=== PATIENT | male | born 2005 | race Caucasian/White ===

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

== ENCOUNTER 2023-07-18 15:58 | Emergency (ER) | payer BC, SELFPAY ==
[2023-07-18 16:23] VITALS: BP 166/65; PULSE 81; RESP 12; TEMP 36.8; O2SAT 99
--- NOTE | 2023-07-18 16:51 | W.ED.GENAD ---
Discharge Plan Disposition Patient Disposition: Home Condition: Stable Discharge Details Chief Complaint: Sorethroat Clinical Impression: Sore throat Primary Care Provider: Unknown,Unknown ED Provider: Yanick Lara Home Meds and New Rx's Prescriptions: No Action No Known Home Meds Discharge Instructions Additional Instructions: Your strep test was negative You can try [id number] remedies such as 1000 mg of Tylenol and 600 mg of ibuprofen every 6 hours as needed. May also try taking a daily Claritin or Zyrtec Follow-up with your primary care provider if not better within 1 to 2 weeks If the strep culture grows anything you will be contacted If you feel more ill or have new symptoms such as inability to swallow liquids return to the emergency department HPI General Mode of arrival: ambulatory. Date/Time Provider Initiated Documentation: 07/18/23 16:21. Limitations to Documentation: no limitations. Information obtained by: patient. History of Present Illness 18 year old M presents to the emergency department with the chief complaint of Sore throat, described as mild, Patient started experiencing this day(s) (2) and it has been constant. No relieving factors improve symptom(s), No exacerbating factors reported . Patient notes no other symptoms.. Patient did receive the following treatments prior to arrival, none Related Data Home Medications Medication Instructions Recorded Confirmed Unknown [No Known Home Meds] 09/26/20 07/18/23 Allergies Allergy/AdvReac Type Severity Reaction Status Date / Time influenza virus vaccine, Allergy Intermediate PROBLEMS Verified 07/18/23 16:27 specific BREATHING General Stated Complaint: Sorethroat NEREIDA: 4 Review of Systems All systems reviewed & are unremarkable except as noted in HPI and below Constitutional Constitutional: Denies chills, Denies fever(s) and Denies weakness ENT Ears, Nose, Mouth, and Throat: Denies change in voice Cardiovascular Cardiovascular: Denies chest pain and Denies dyspnea Respiratory Respiratory: Denies cough and Denies dyspnea Gastrointestinal Gastrointestinal: Denies abdominal pain, Denies nausea and Denies vomiting Integumentary/Breasts Skin/Breast: Denies rash Neurologic Neurologic: Denies weakness Psychiatric Psychiatric: Denies depression Endocrine Endocrine: Denies cold intolerance and Denies heat intolerance Exam Const General: no acute distress Orientation: alert HENMT Head: normal to inspection Ears: external ears normal General nose exam: external nose normal Mouth: oral mucosae normal and moist mucous membranes Throat: posterior oropharynx normal and uvula midline Eyes General: appearance normal, both eyes and all related structures Neck Neck: normal visual inspection, full ROM, no lymphadenopathy, trachea midline and supple Resp Effort & Inspection: normal respiratory effort and able to speak in complete sentences Cardio Rate: regular rate Skin General skin exam: no rashes or lesions noted Neuro General: patient alert and patient oriented x3 Extrem General: normal to inspection Psych Mental Status: mental status grossly normal Course Vital Signs Vital signs: Vital Signs Temperature 36.8 C 07/18/23 16:23 Pulse 81 07/18/23 16:23 Respiratory Rate 12 07/18/23 16:23 Blood Pressure 166/65 H 07/18/23 16:23 Pulse Oximetry 99 07/18/23 16:23 Temperature 36.8 C 07/18/23 16:23 Temperature Source Temporal Artery Scan 07/18/23 16:23 Pulse 81 07/18/23 16:23 Respiratory Rate 12 07/18/23 16:23 Respiratory Effort Normal, Non-Labored 07/18/23 16:25 Blood Pressure 166/65 H 07/18/23 16:23 Pulse Oximetry 99 07/18/23 16:23 Oxygen Delivery Method Room Air 07/18/23 16:23 Oxygen Flow Rate 0 07/18/23 16:23 Pain Level 3 07/18/23 16:23 Lab/Test Results Lab/Test Results: 07/18/23 16:36 Tonsil - Not Specified Group A Streptococcus Culture - Pending POC Strep Test-SILVA(Rapid) Start: 07/18/23 16:26 Freq: .Rapid Strep Test Status: Active Protocol: Document 07/18/23 16:36 KIERRA (Rec: 07/18/23 16:36 KIERRA [id number]) Strep test-SILVA(Rapid)-POC POC-Strep test-SILVA (Rapid) Negative POC-Strep test-SILVA (Rapid) Negative Medical Decision Making 18-year-old male with no significant past medical history comes in with sore throat for 2 days. Also notes a dry cough. He does work outside and sisters been a lot of pollen in the area. He has not had any fevers, no difficulty breathing or swallowing. He arrives stable speaking clearly in no distress. No stridor or drooling. Posterior pharynx has mild erythema, midline uvula, no exudates. No submandibular swelling, no pain over the hyoid, no restricted neck movements. Strep test is negative and findings are more consistent with either viral pharyngitis versus allergies. Advised if culture grows anything he will be contacted, advised to try [id number] therapy such as daily Zyrtec and Claritin and also ibuprofen and Tylenol as needed. He will follow-up with his PCP if not improving within a week and return precautions given Differential Diagnosis Differential Diagnosis: Viral versus strep pharyngitis, allergies, Quality:SDOH Health Related Social Needs: No Data to Display PFSH All Active Problems (Updated 07/18/23 @ 16:56 by Yanick Lara MD) Sore throat (Acute) Family history of hemochromatosis (Acute) mom very worried- blood tests 06/27 show normal iron stores and no overload. 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) treated with meds but then able to stop and did well Medical History (Updated 07/18/23 @ 16:56 by Yanick Lara MD) [facility] (attention deficit disorder) ADVERSE REACTION TO FLU VACCINE Surgical History Circumcision Family History Maternal Aunt Hemochromatosis on dad's side- dad had genetic testing which was negative 11/23 Social History Smoking/Tobacco Use Status: Never Smoking risk assessment performed?: Yes Alcohol Intake: never Drug use: Never Substance use type: does not use Housing: house Education Level: high school Details: [employer] Pets and animals: Yes Pets and animals: cat(s) and dog(s) Do you feel safe at home: Yes Do you feel safe in your relationship?: Yes
[2023-07-18 16:59] VITALS: BP 166/65; PULSE 81; RESP 12; TEMP 36.8; O2SAT 99
--- NOTE | 2023-07-21 08:18 | NUR.NOTE ---
Mother Lorna Rucker called stating that she read on the portal that the strep culture was Not Isolated. She wanted to know if that meant it was negative. I reviewed the result with Dr Whittington and told her that it was negative. Nursing Note:
== END 2023-07-18 17:00 | disposition home or self-care (01) ==
PROVIDERS: Emergency Provider Emergency Medicine
DX: J02.9 Acute pharyngitis, unspecified (principal)
CPT/HCPCS: 87880; 99283; 87081

== ENCOUNTER 2024-03-28 16:53 | Outpatient (CLI) | payer BC, SELFPAY ==
--- NOTE | 2024-03-28 15:46 | DI.RAD_ITS ---
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 TECHNIQUE: 2D digital imaging was performed. COMPARISON: CR XR CHEST 2V PA LATERAL from 12/29/2018 FINDINGS: 2 views: Heart size is normal. The mediastinum is not widened. Lungs are clear. No infiltrates nor pleural effusions. IMPRESSION: No acute pulmonary findings. DATA REPOSITORY: RADIATION DOSE DELIVERED:
== END 2024-03-28 17:13 ==
LOC: DI 16:53
PROVIDERS: PCP Nurse Practitioner Family; Visit Provider Nurse Practitioner Family
DX: Z13.9 Encounter for screening, unspecified (principal)
CPT/HCPCS: 71046

== ENCOUNTER 2024-03-30 07:53 | Outpatient (CLI) | payer BC, SELFPAY ==
--- NOTE | 2024-03-30 07:45 | RT.EKG_ITS ---
APPROVED REPORT Exam: Resting ECG Reason for Exam: healthcare management pre-employment Patient Location: O HR:59 bpm ECG Measurements Heart Rate 59 AXIS SC 140 P 44 QRSd 110 QRS 57 QT 395 T 33 QTc 392 Conclusion Sinus rhythm...normal P axis, V-rate 50- 99 RSR' in V1 or V2, Normal Electrocardiogram
--- NOTE | 2024-04-10 15:47 | W.PFT ---
Date of service: 03/30/24 Time of Service: 08:14 Pulmonary Function Test Result Indications: Health screen Interpretation Spirometry: There is no airflow limitation. Impression Normal spirometry Clinical Correlation therefore is recommended.
== END 2024-03-30 07:54 | disposition home or self-care (01) ==
PROVIDERS: PCP Nurse Practitioner Family; Visit Provider Nurse Practitioner Family
DX: Z13.9 Encounter for screening, unspecified (principal)
CPT/HCPCS: 94010; 93005; 93010

== ENCOUNTER 2025-01-01 07:01 | Emergency (ER) | payer OTHER, SELFPAY ==
[2025-01-01] VITALS (19 sets, daily range): BP systolic 115–144; BP diastolic 54–68; PULSE 49–70; RESP 16; O2SAT 100
--- NOTE | 2025-01-01 07:00 | RT.EKG_ITS ---
APPROVED REPORT Exam: Resting ECG Reason for Exam: syncope Patient Location: E HR:61 bpm ECG Measurements Heart Rate 61 AXIS ID 138 P 65 QRSd 105 QRS 88 QT 392 T 60 QTc 394 Conclusion Sinus rhythm...normal P axis, V-rate 60- 99 ST elevation suggests possible acute pericarditis...ST >0.10mV, ant/lat/inf
[2025-01-01] MEDS: Lactated Ringers 1,000 ML 1000 ML IV (07:30)
--- NOTE | 2025-01-01 07:34 | ED.GENADUL_ITS ---
Discharge Plan Disposition Patient Disposition: Home Condition: Stable Discharge Details Clinical Impression: Postural dizziness with near syncope, Hypovolemia Primary Care Provider: Kezia Lawrence ED Provider: Frantz Lua Home Meds and New Rx's Prescriptions: No Action No Known Home Meds Discharge Instructions Instructions: Orthostatic hypotension, Dehydration, Adult ED Additional Instructions: Please drink plenty of clear fluids (like water or sports drink) on a daily basis to stay hydrated. Please follow-up with your primary care physician. Return to the emergency department immediately for any worsening or new concerning symptoms. Stand Alone Forms: Portal Information Referrals: Kezia Lawrence [Primary Care Provider, Medicine] Discharge Data Discharge Date/Time-TO BE ENTERED AT DEPARTURE: 01/01/25 09:27 HPI General Mode of arrival: EMS . Date/Time Provider Initiated Documentation: 01/01/25 07:06 . Limitations to Documentation: no limitations . Information obtained by: patient . HPI Narrative: 19yo male, otherwise healthy, here with near syncope. 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 Sat back down and symptoms improved. Now asymptomatic. No pain during episode. Patient notes similar has happened in past standing up from seated position. No prior syncope. Would not have come accept that he was at work ad told to get checked out. Related Data Home Medications ?Medication ?Instructions ?Recorded ?Confirmed Unknown [No Known Home Meds] 09/26/20 0 07/18/23 Allergies Allergy/AdvReac Type Severity Reaction Status Date / Time influenza virus vaccine, Allergy Intermediate PROBLEMS Verified 07/18/23 16:27 specific BREATHING General Stated Complaint: Dizzy/Sync NEREIDA: 4 Review of Systems All systems reviewed & are unremarkable except as noted in HPI and below Constitutional Constitutional: Denies fever(s) Cardiovascular Cardiovascular: Denies chest pain and Denies dyspnea Respiratory Respiratory: Denies dyspnea Exam Const General: cooperative and no acute distress HENMT Mouth: mucous membranes dry Eyes Conjunctivae: normal conjunctivae Sclera: normal sclerae Neck Neck: trachea midline Resp Auscultation: clear to auscultation bilaterally, no rales, no rhonchi and no wheezes Cardio Rate: regular rate and not tachycardic Rhythm: regular rhythm GI Palpation: soft, not firm, no guarding, no masses, not rigid and nontender Skin General skin exam: decreased turgor Neuro General: patient alert, patient awake, patient oriented x3 and tone normal Extrem General: no edema Psych Appearance: grossly normal Mental Status: mental status grossly normal Speech and Movement: speech and movement normal Course Vital Signs Vital signs: Vital Signs Pulse 70 01/01/25 07:00 Respiratory Rate 16 01/01/25 07:00 Blood Pressure 128/60 01/01/25 07:00 Pulse Oximetry 100 01/01/25 07:00 Pulse 70 01/01/25 07:00 Respiratory Rate 16 01/01/25 07:00 Blood Pressure 128/60 01/01/25 07:00 Pulse Oximetry 100 01/01/25 07:00 Oxygen Delivery Method Room Air 01/01/25 07:00 Oxygen Flow Rate 0 01/01/25 07:00 Medical Decision Making 735 --19-year-old male, otherwise healthy, here after near syncopal episode after performing CPR and then standing. Symptoms resolved with sitting down. No pain during episode. Patient now asymptomatic. Patient appears mildly dehydrated on exam. He is hemodynamically stable. Screening EKG was reviewed and interpreted by me: Sinus rhythm 61 bpm, peaked T waves noted anterior lateral. Consider hyperkalemia or other electrolyte abnormality. Plan to check screening labs. Will give IV fluid bolus for dehydration. 909 -- Labs reviewed and nondiagnostic. Patient reassessed and remained stable. Plan for discharge with outpatient follow-up. Usual and customary discharge instructions reviewed. Lab Data Labs: Laboratory Tests Range/Units 01/01/25 07:30 WBC (4.4-10.8) 10^3/uL 6.04 RBC (4.36-5.78) 10^6/uL 4.75 Hgb (13.5-17.5) g/dL 14.1 Hct (40.0-50.0) % 41.3 MCV (80-95) fL 87 MCH (27.0-33.0) pg 29.7 MCHC (32.0-36.0) % 34.1 RDW (11.8-14.1) % 12.2 Plt Count (130-400) 10^3/uL 189 MPV (8.0-11.0) fL 9.2 Immature Gran % % 0.3 Neutrophils % % 67.6 Lymphocytes % % 24.0 Monocytes % % 6.8 Eosinophils % % 0.8 Basophils % % 0.5 Nucleated RBC % (0.0-0.3) % 0.0 Absolute Neutrophils (1.2-6.7) 10^3/uL 4.08 Absolute Lymphocytes (1.2-3.4) 10^3/uL 1.45 Absolute Monocytes (0.1-0.8) 10^3/uL 0.41 Absolute Eosinophils (0.0-0.7) 10^3/uL 0.05 Absolute Basophils (0.0-0.2) 10^3/uL 0.03 Sodium (136-145) mmol/L 139 Potassium (3.5-5.1) mmol/L 4.2 Chloride (98-107) mmol/L 108 H Carbon Dioxide (20.0-31.0) mmol/L 28.7 Anion Gap (3-11) mmol/L 2.3 L BUN (9-23) mg/dL 15 Creatinine (0.73-1.18) mg/dL 1.18 Est GFR (CKD-EPI 2020) (mL/min/1.73m2) 77.34 Glucose (74-106) mg/dL 101 Calcium (8.3-10.6) mg/dL 9.0 Magnesium (1.6-2.6) mg/dL 1.9 Total Bilirubin (0.2-1.2) mg/dL 0.50 AST (<34) U/L 18 ALT (10-49) U/L 26 Alkaline Phosphatase (46-116) U/L 57 Troponin I (<54) ng/L < 3 Total Protein (5.7-8.2) g/dL 7.1 Albumin (3.4-5.0) g/dL 4.3 PFSH All Active Problems (Updated 01/01/25 @ 07:43 by Frantz Lua MD) Hypovolemia (Acute) Postural dizziness with near syncope (Acute) Screening due (Acute) Family history of hemochromatosis (Acute) mom very worried- blood tests 06/27 show normal iron stores and no overload. 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) treated with meds but then able to stop and did well Medical History Smoker in home in garage ADD (attention deficit disorder) ADVERSE REACTION TO FLU VACCINE Surgical History Circumcision Family History Maternal Aunt Hemochromatosis on dad's side- dad had genetic testing which was negative 11/23 Social History Smoking/Tobacco Use Status: Never Smoking risk assessment performed?: Yes Alcohol Intake: never Drug use: Never Substance use type: does not use Housing: house Education Level: high school Details: [employer] Pets and animals: Yes Pets and animals: cat(s) and dog(s) Do you feel safe at home: Yes Do you feel safe in your relationship?: Yes
[2025-01-01 07:39] LABS: Abs Immature Grans 0.02 10^3/uL (0.0-0.06); HCT 41.3 % (40.0-50.0); HGB 14.1 g/dL (13.5-17.5); Immature Grans % 0.3 %; MCH 29.7 pg (27.0-33.0); MCHC 34.1 % (32.0-36.0); MCV 87 fL (80-95); MPV 9.2 fL (8.0-11.0); Platelet Count 189 10^3/uL (130-400); RBC 4.75 10^6/uL (4.36-5.78); RDW 12.2 % (11.8-14.1); RDW-SD 38.7 fL; WBC 6.04 10^3/uL (4.4-10.8)
[2025-01-01 08:01] LABS: Magnesium 1.9 mg/dL (1.6-2.6)
[2025-01-01 08:02] LABS: ALT 26 U/L (10-49); AST 18 U/L (<34); Albumin 4.3 g/dL (3.4-5.0); Alkaline Phosphatase 57 U/L (46-116); Anion Gap 2.3 mmol/L (3-11); BUN 15 mg/dL (9-23); Bilirubin, Total 0.50 mg/dL (0.2-1.2); CO2 28.7 mmol/L (20.0-31.0); Calcium 9.0 mg/dL (8.3-10.6); Chloride 108 mmol/L (98-107); Glucose 101 mg/dL (74-106); Potassium 4.2 mmol/L (3.5-5.1); Sodium 139 mmol/L (136-145); Total Protein 7.1 g/dL (5.7-8.2)
[2025-01-01 08:13] LABS: Troponin I < 3 ng/L (<54)
[2025-01-01 09:14] LABS: Troponin I 3 ng/L (<54)
== END 2025-01-01 09:27 | disposition home or self-care (01) ==
PROVIDERS: Emergency Provider Student in an Organized Health Care Education/Training Program; PCP Nurse Practitioner Family
DX: R55 Syncope and collapse (principal); R42 Dizziness and giddiness; E86.1 Hypovolemia
CPT/HCPCS: 36415; 80053; 93005; 96360; 99284; 83735; 84484; 85025; 93010; 99283